=== PATIENT | female | born 1970 | race Caucasian/White ===

== ENCOUNTER 2016-09-09 21:50 | Observation (INO) | payer OTHER ==
[~2016-09-09] VITALS: Ht 149.9 cm; Wt 69.1 kg
[2016-09-09] MEDS ORDERED: NITROGLYCERIN 0.4 MG SL PER TAB CHARGE ONE (21:59)
[2016-09-09] MEDS ORDERED: NITROGLYCERIN 0.4 MG SL PER TAB CHARGE SL STA (21:59)
[2016-09-09 22:22] LABS: BASO % 0.1 %; BASO ABS # 0.01 K/uL (0-0.2); COMPLETE YES; EOS % 0.6 %; HEMATOCRIT 47.2 % (37-47); IG% 0.2 %; LYMPH % 19.2 %; LYMPH ABS # 1.74 K/uL (1.2-3.4); MEAN CELL VOLUME 82.7 fL (80-100); MEAN CORPUSCULAR HEMOGLOBIN 27.7 pg (25-34); MEAN CORPUSCULAR HGB CONC 33.5 g/dl (32-36); MEAN PLATELET VOLUME 11.5 fL (7.4-10.4); MONO % 7.2 %; NEUT % 72.7 %; PLATELET COUNT 231 K/uL (130-400); RED BLOOD COUNT 5.71 M/uL (4.2-5.4); WHITE BLOOD COUNT 9.04 K/uL (4.8-10.8)
--- NOTE | 2016-09-09 22:27 | DIAGNOSTIC IMAGING REPORT ---
CHEST ONE VIEW PORTABLE CLINICAL HISTORY: CHEST PAIN dyspnea COMPARISON STUDY: No previous studies for comparison. FINDINGS: The bones soft tissues and hemidiaphragms are normal. The cardiomediastinal silhouette is normal. The lungs are clear. The pulmonary vasculature is normal. IMPRESSION: Negative chest. Electronically signed by: Guido Gonzalez M.D. 09/09/2016 10:26 PM Dictated Date/Time: 09/09/2016 10:25 PM
[2016-09-09] MEDS ORDERED: NITROGLYCERIN OINT 2% 1GM PACKET EXT ONE (22:30)
[2016-09-09 22:42] LABS: ALKALINE PHOSPHATASE 105 U/L (45-117); ALT/SGPT 22 U/L (12-78); AST/SGOT 16 U/L (15-37); BLOOD UREA NITROGEN 15 mg/dl (7-18); BUN/CREATININE RATIO 14.6 (10-20); CALCIUM 9.1 mg/dl (8.5-10.1); CARBON DIOXIDE 25 mmol/L (21-32); CHLORIDE 107 mmol/L (98-107); CREATININE 0.99 mg/dl (0.60-1.20); GLUCOSE 115 mg/dl (70-99); POTASSIUM 3.7 mmol/L (3.5-5.1); SODIUM 140 mmol/L (136-145)
[2016-09-09] MEDS ORDERED: MoRPHine SULFATE 4 MG/ML 1 ML CARP\\VIAL IV STA (23:10)
[2016-09-09 23:32] LABS: PARTIAL THROMBOPLASTIN RATIO 1.2
[2016-09-09] MEDS ORDERED: ATOR10TA88 PO ×2 (23:39→23:43)
[2016-09-09] MEDS ORDERED: CLOP1TAB15 PO (23:44)
[2016-09-09] MEDS ORDERED: CLON0.5T3 PO (23:45)
[2016-09-09] MEDS ORDERED: METOPROLOL TARTRATE 1 MG/ML VIAL IV SCH (23:49)
[2016-09-09] MEDS ORDERED: MORPHINE SULFATE IR PO (23:50)
[2016-09-09] MEDS ORDERED: POTASSIUM CHLORIDE 10 MEQ TABCR PO SCH (23:51)
[2016-09-09] MEDS ORDERED: HYDR12.55 PO (23:51)
[2016-09-09] MEDS ORDERED: CLONAZEPAM 0.5 MG TAB PO SCH (23:51)
[2016-09-09] MEDS ORDERED: MIRT30TA2 PO (23:51)
[2016-09-09 23:52] LABS: MAGNESIUM 2.5 mg/dl (1.8-2.4); THYROID STIMULATING HORMONE 0.884 uIu/ml (0.300-4.500)
[2016-09-09] MEDS ORDERED: SIMV10TA2 PO (23:52)
[2016-09-10] MEDS ORDERED: ONDANSETRON INJ 2 MG/ML 2 ML VIAL IV PRN
[2016-09-10] MEDS ORDERED: ACETAMINOPHEN 325 MG TAB PO PRN
[2016-09-10] MEDS ORDERED: LACTATED RINGER'S 1000ML 1,000 ML IV ONE
[2016-09-10] MEDS ORDERED: MoRPHine SULFATE 4 MG/ML 1 ML CARP\\VIAL IV PRN
[2016-09-10] MEDS ORDERED: MORPHINE SULFATE IR PO PRN
[2016-09-10] MEDS ORDERED: NITROGLYCERIN 0.4 MG SL PER TAB CHARGE SL PRN
[2016-09-10] MEDS ORDERED: MoRPHine SULFATE IR 15 MG TAB (IMMEDIATE RELEASE) PO SCH (00:28)
[2016-09-10 00:30] VITALS: BP 187/124; PULSE 82; TEMP 36.7; O2SAT 95; Ht 149.9 cm; Wt 69.1 kg
[2016-09-10] MEDS ORDERED: MoRPHine SULFATE IR 15 MG TAB (IMMEDIATE RELEASE) PO PRN (00:30)
[2016-09-10] MEDS ORDERED: MORPHINE SULFATE IR 30 MG PO ONE (00:30)
[2016-09-10] MEDS ORDERED: IV FLUIDS COMPLETED PRN (00:30)
[2016-09-10] MEDS ORDERED: METOPROLOL TARTRATE 50 MG TAB PO ONE (02:36)
[2016-09-10 04:00] VITALS: O2SAT 95
[2016-09-10 04:36] VITALS: BP 149/95; PULSE 81; TEMP 36.8; O2SAT 93
--- NOTE | 2016-09-10 04:46 | EMERGENCY ROOM VISIT NOTE ---
History First contact with patient: 21:59 Chief Complaint: CHEST PAIN Stated Complaint: CHEST PAIN Nursing Triage Summary: patient presents to the emergency department [facility] for complaint of chest pain patient states chest pain began around 2030 tonight while eating dinner describes the chest pain as feeling like "an elephant is sitting on my chest", also c/o shortness of breath patient has had 5 cardiac stents placed in the past in [place], [place] History of Present Illness The patient is a 46 year old female who presents to the Emergency Room with complaints of midsternal chest pain with nausea and diaphoresis that started at 8:30 tonight while watching her family member at a concert. Patient has 5 stents. She has extensive heart disease and continues to smoke. She is in town visiting from [place]. Dr. Sahni is her hot car charger and she states she is overdue for her cardiac catheterization. Patient describes the pain as pressure, ranging in severity 9 out of 10. It is slightly better with the nitroglycerin question that was given by EMS. EMS also gave aspirin. Patient denies dyspnea, fever, chills, cough, congestion, abdominal pain, leg pain or swelling. Review of Systems See HPI for pertinent positives & negatives. A total of 10 systems reviewed and were otherwise negative. Past Medical/Surgical History Medical Problems: (1) Chest pain Coronary artery disease, seizures, hypertension, hyperlipidemia, lymes disease, appendectomy, nephrolithiasis Social History Smoking Status: Heavy Tobacco Smoker Drug Use: none Marital Status: Housing Status: lives with family Current/Historical Medications Scheduled Atorvastatin (Lipitor), Unknown Dose PO DAILY Clonazepam (Klonopin), 0.5 MG PO QID Clopidogrel (Plavix), 75 MG PO DAILY Hydrochlorothiazide (Hydrochlorothiazide), 12.5 MG PO DAILY Mirtazapine Soltab (Remeron Soltab), 60 MG PO HS Simvastatin (Zocor), Unknown Dose PO DAILY Scheduled PRN [Morphine Sulfate Ir], 10 MG PO Q6H PRN for Pain Allergies Coded Allergies: Penicillin V (Verified Allergy, Severe, ANAPHYLAXIS, 09/10/16) Lorazepam (Verified Adverse Reaction, Intermediate, MOOD CHANGES, 09/09/16) Physical Exam Vital Signs Date Time Temp Pulse Resp B/P Pulse Ox O2 Delivery O2 Flow Rate FiO2 09/09/16 23:08 123 28 221/131 94 Nasal Cannula 2.0 09/09/16 22:55 126 20 191/133 96 Nasal Cannula 2.0 09/09/16 22:29 112 16 174/127 97 Nasal Cannula 2.0 09/09/16 22:12 97 Nasal Cannula 2.0 09/09/16 21:59 97 Room Air 09/09/16 21:59 37.2 118 24 163/116 97 Room Air 09/09/16 21:59 97 Room Air 09/09/16 21:56 113 Pain Rating (0-10): 8.0 Physical Exam VITALS: Vitals are noted on the nurse's note and reviewed by myself. Vital signs hypertensive GENERAL: White female with tobacco odor, in no acute distress, nondiaphoretic, well-developed well-nourished. SKIN: The skin was without rashes, erythema, edema, or bruising. There is no tenting of the skin. Capillary reflex less than 2 seconds. HEAD: Normocephalic atraumatic. EARS: External auditory canals clear, tympanic membranes pearly aguilar without erythema or effusion bilaterally. EYES: Pupils equal round and reactive to light and accommodation. Conjunctivae without injection, sclerae without icterus. Extraocular movements intact. NOSE: Patent, turbinates without inflammation or discharge. MOUTH: Mucous membranes moist. Pharynx without erythema or exudate. Uvula midline. Airway patent. Tongue does not deviate. NECK: Supple without nuchal rigidity. No lymphadenopathy. No thyromegaly. Cervical spine is nontender. No JVD. HEART: Regular rate and rhythm without murmurs gallops or rubs. Chest nontender to palpation LUNGS: Clear to auscultation bilaterally without wheezes, rales or rhonchi. No dullness to percussion. No retractions or accessory muscle use. ABDOMEN: Positive bowel sounds x 4. Normal tympanic percussion. Soft, nontender, without masses or organomegaly. Aguirre sign negative. No guarding or rebound tenderness. MUSCULOSKELETAL: No muscle atrophy, erythema, or edema noted. NEURO: Patient was alert and oriented to person place and time. Normal sensation to light and sharp touch. No focal neurological deficits. Medical Decision & Procedures Laboratory Results 09/09/16 22:10 Red Blood Count 5.71, Mean Corpuscular Volume 82.7, Mean Corpuscular Hemoglobin 27.7, Mean Corpuscular Hemoglobin Concent 33.5, Mean Platelet Volume 11.5, Neutrophils (%) (Auto) 72.7, Lymphocytes (%) (Auto) 19.2, Monocytes (%) (Auto) 7.2, Eosinophils (%) (Auto) 0.6, Basophils (%) (Auto) 0.1, Neutrophils # (Auto) 6.57, Lymphocytes # (Auto) 1.74, Monocytes # (Auto) 0.65, Eosinophils # (Auto) 0.05, Basophils # (Auto) 0.01 09/09/16 22:10 Test 09/09/16 22:10 09/09/16 22:12 White Blood Count 9.04 K/uL (4.8-10.8) Red Blood Count 5.71 M/uL (4.2-5.4) Hemoglobin 15.8 g/dL (12.0-16.0) Hematocrit 47.2 % (37-47) Mean Corpuscular Volume 82.7 fL (80-100) Mean Corpuscular Hemoglobin 27.7 pg (25-34) Mean Corpuscular Hemoglobin Concent 33.5 g/dl (32-36) Platelet Count 231 K/uL (130-400) Mean Platelet Volume 11.5 fL (7.4-10.4) Neutrophils (%) (Auto) 72.7 % Lymphocytes (%) (Auto) 19.2 % Monocytes (%) (Auto) 7.2 % Eosinophils (%) (Auto) 0.6 % Basophils (%) (Auto) 0.1 % Neutrophils # (Auto) 6.57 K/uL (1.4-6.5) Lymphocytes # (Auto) 1.74 K/uL (1.2-3.4) Monocytes # (Auto) 0.65 K/uL (0.11-0.59) Eosinophils # (Auto) 0.05 K/uL (0-0.5) Basophils # (Auto) 0.01 K/uL (0-0.2) RDW Standard Deviation 44.9 fL (36.4-46.3) RDW Coefficient of Variation 14.9 % (11.5-14.5) Immature Granulocyte % (Auto) 0.2 % Immature Granulocyte # (Auto) 0.02 K/uL (0.00-0.02) Activated Partial Thromboplast Time 29.9 SECONDS (21.0-31.0) Partial Thromboplastin Ratio 1.2 Anion Gap 8.0 mmol/L (3-11) Est Creatinine Clear Calc Drug Dose 60.5 ml/min Estimated GFR () 79.2 Estimated GFR (Non- 68.3 BUN/Creatinine Ratio 14.6 (10-20) Calcium Level 9.1 mg/dl (8.5-10.1) Magnesium Level 2.5 mg/dl (1.8-2.4) Total Bilirubin 0.3 mg/dl (0.2-1) Direct Bilirubin < 0.1 mg/dl (0-0.2) Aspartate Amino Transf (AST/SGOT) 16 U/L (15-37) Alanine Aminotransferase (ALT/SGPT) 22 U/L (12-78) Alkaline Phosphatase 105 U/L (45-117) Total Protein 7.7 gm/dl (6.4-8.2) Albumin 3.9 gm/dl (3.4-5.0) Lipase 165 U/L (73-393) Thyroid Stimulating Hormone (TSH) 0.884 uIu/ml (0.300-4.500) Bedside Troponin I 0.000 ng/ml (0-0.045) Medications Administered Medications (Trade) Dose Ordered Sig/Jeannette Route Start Time Stop Time Status Last Admin Dose Admin Nitroglycerin (Nitrostat Tab) 0.4 mg STK-MED ONCE .ROUTE 09/09/16 21:59 09/09/16 22:02 DC 09/09/16 22:04 0.4 MG Nitroglycerin (Nitroglycerin 2% Oint) 1 inch NOW ONCE EXT 09/09/16 22:30 09/09/16 23:51 DC 09/09/16 22:29 1 INCH Morphine Sulfate (MoRPHine SULFATE INJ) 4 mg NOW STAT IV 09/09/16 23:10 09/09/16 23:11 DC 09/09/16 23:31 4 MG ED Course Prior records/ancillary studies reviewed. Triage Nursing notes reviewed. Additional history obtained from EMS. The patient's history was concerning for chest pain. Differential diagnosis: Etiologies such as cardiac ischemia, aortic dissection, pulmonary embolism, pneumonia, pneumothorax, musculoskeletal, infections, pericarditis, myocarditis , esophageal rupture, gastrointestinal, as well as others were entertained. Physical examination: As above. ER treatment provided: Nitroglycerin On reassessment the patient felt better. Diagnostic interpretation by me: The electrocardiogram was negative for pathologic change. Normal sinus, normal intervals, no acute ST-T wave changes. Impression normal sinus rhythm interpreted by myself The labs revealed negative troponin Imaging studies: Chest x-ray with no acute consolidation, pneumothorax or free air per my interpretation Consultation: A consultation was placed with the hospitalist, Dr Maddox. The case was discussed and diagnostics were reviewed. The patient was evaluated in the ER for further treatment. Exam and history seem consistent with chest pain with concerns for cardiac ischemia. Patient has extensive heart disease. She continues to smoke. She will be evaluated by medicine for possible admission. First troponin was negative. Normal EKG. By the evaluation outlined above emergent etiologies such as aortic dissection, pulmonary embolism, pneumonia, pneumothorax, infections, pericarditis, myocarditis, gastrointestinal, as well as others were deemed relatively unlikely. The pt informed about the findings as listed above. All questions were answered and pleased with the treatment. Case reviewed with my attending Medical Decision As above Impression Primary Impression: Substernal precordial chest pain Departure Information Dispostion Still a Patient Condition FAIR Referrals No Doctor, Assigned (PCP) Forms HOME CARE DOCUMENTATION FORM, IMPORTANT VISIT INFORMATION Patient Instructions My [facility]
[2016-09-10 06:12] VITALS: BP 171/95; PULSE 74
--- NOTE | 2016-09-10 06:14 | DIAGNOSTIC IMAGING REPORT ---
HEAD CT NONCONTRAST CT DOSE: 537.48 mGy.cm HISTORY: Mental status change mendez TECHNIQUE: Multiaxial CT images of the head were performed without the use of intravenous contrast. Comparison: None. Findings: The paranasal sinuses and mastoid air cells are clear. The calvarium and skull base are intact. The ventricles and sulci are within normal limits. There is no mass, hematoma, midline shift, or acute infarct. Impression: No acute intracranial abnormality. Electronically signed by: Guido Gonzalez M.D. 09/10/2016 6:12 AM Dictated Date/Time: 09/10/2016 6:12 AM
[2016-09-10] MEDS ORDERED: CLONAZEPAM 0.5 MG TAB PO ONE (06:19)
[2016-09-10] MEDS ORDERED: MoRPHine SULFATE 4 MG/ML 1 ML CARP\\VIAL IV ONE (06:30)
[2016-09-10 06:42] LABS: BASO % 0.1 %; BASO ABS # 0.01 K/uL (0-0.2); COMPLETE YES; EOS % 0.3 %; HEMATOCRIT 47.3 % (37-47); IG% 0.2 %; LYMPH % 17.2 %; LYMPH ABS # 2.05 K/uL (1.2-3.4); MEAN CELL VOLUME 84.8 fL (80-100); MEAN CORPUSCULAR HEMOGLOBIN 28.5 pg (25-34); MEAN CORPUSCULAR HGB CONC 33.6 g/dl (32-36); MONO % 8.2 %; PLATELET COUNT 251 K/uL (130-400); RED BLOOD COUNT 5.58 M/uL (4.2-5.4); WHITE BLOOD COUNT 11.95 K/uL (4.8-10.8)
[2016-09-10 06:49] LABS: INR 0.9 (0.9-1.1); PARTIAL THROMBOPLASTIN RATIO 1.2; PROTHROMBIN TIME (PATIENT) 10.1 SECONDS (9.0-12.0)
[2016-09-10 07:19] VITALS: BP 166/97; PULSE 71; TEMP 36.8; O2SAT 96
[2016-09-10 07:26] LABS: BLOOD UREA NITROGEN 14 mg/dl (7-18); BUN/CREATININE RATIO 17.4 (10-20); CALCIUM 9.3 mg/dl (8.5-10.1); CARBON DIOXIDE 25 mmol/L (21-32); CHLORIDE 107 mmol/L (98-107); CHOLESTEROL 154 mg/dl (0-200); CHOLESTEROL/HDL RATIO 2.3; CREATININE 0.82 mg/dl (0.60-1.20); GLUCOSE 105 mg/dl (70-99); HDL CHOLESTEROL 67 mg/dl; LDL CHOLESTEROL CALCULATED 69 mg/dl; POTASSIUM 4.6 mmol/L (3.5-5.1); SODIUM 139 mmol/L (136-145); TRIGLYCERIDES 88 mg/dl (0-150); VERY LOW DENSITY LIPOPROT CALC 18 mg/dl
--- NOTE | 2016-09-10 07:51 | HISTORY & PHYSICAL EXAMINATION ---
DATE OF ADMISSION: 09/09/2016 PRIMARY CARE DOCTOR: Miss Mejia Devika, RABIES INSPECTOR from the [place], [place]. History was obtained from patient. CHIEF COMPLAINT: Chest pain. HISTORY OF PRESENT ILLNESS: Medical history is significant for CAD status post stenting, hypertension, hyperlipidemia, ongoing tobacco abuse, chronic pain secondary to Lyme disease on narcotics, past history of Suboxone treatment, mood/anxiety disorder. Patient is resident of [facility]. She is currently in town to watch family members' music performance. She was having dinner tonight when she had substernal heaviness like an elephant sitting on the chest, going to her shoulder w diaphoresis, similar to heart attack in the past. Relief with nitroglycerin upon arrival to EMS. Compliant with meds. Px also noted generalized headache sx worse with nitropaste placed in the ER. Patient has not taken her nighttime blood pressure meds. The last time she had an anginal attack was in June 2016 . She was seen at the local ER in [place] and subsequently discharged. MEDICAL HISTORY: As above. Her flexographic press helper is Dr. Jeffery Sahni from [place], [place]. Her stents were put in by Dr. Larios (cigar roller) from [place], [place]. SURGERIES: She has had appendectomy, shoulder surgery, tonsillectomy, adenectomy and lieutenant governor procedures. HOME MEDICATIONS: Include; aspirin, Plavix, Lopressor, Lipitor, clonazepam, Remeron, morphine sulfate. She used to be on Suboxone for 5 years as prescribed by her psychiatrist. Recently switched to morphine as needed by her family nurse practitioner. ALLERGIES: TO LORAZEPAM AND PENICILLIN. FAMILY HISTORY: Heart disease. PERSONAL AND SOCIAL HISTORY: Half a pack daily. No chronic intake of alcoholic beverages. Disabled. REVIEW OF SYSTEMS: As per HPI, all other ROS negative. PHYSICAL EXAMINATION: VITAL SIGNS: Blood pressure was noted to be 160/116, later 221/131 and later 171/110, pulse rate 103, RR 38 later 16, temperature 36.7 and sats 95 on room air. GENERAL: Noted to be obese, anxious, tearful, in no respiratory distress. SKIN: Normal color. HEENT: [employer] palpebral conjunctivae. Dry mucosa. NECK: No JVD, supple CHEST: Clear to auscultation. HEART: Tachycardic. ABDOMEN: Some distension, nontender. EXTREMITIES: No edema, no tenderness. NEUROLOGIC: No gross focality. LABORATORIES: Hemoglobin was noted to be 15.8, hematocrit 47.2, white cell count 9, platelets 231. Sodium 140, potassium 3.7 chloride 107, CO2 25, BUN 50, creatinine 1 and glucose was noted to be 115. Troponin was normal. CT of the head; no acute pathology. Chest x-ray; no infiltrates. EKG; sinus tachycardia, rate 115. Q-waves on the septal leads, PRWP ASSESSMENT AND PLAN: 1. Chest pain possible unstable angina versus hypertensive urgency history of coronary artery disease status post stenting 2. hyperlipidemia on statin therapy; 3. ongoing tobacco abuse 4. anxiety disorder on chronic benzo 5. chronic pain secondary to Lyme disease on narcotics. 6. hx seizures as per px, well controlled not on any AED prophylaxis Observation PCU. Facilitate home beta gardenia. Continue anti-platelets, statin for secondary CAD prevention. Follow cardiac markers 2D echo, Cardio consult RE chest pain. Retrieve records from patient's flexographic press helper, PCP from [place] Nicotine patch. DVT prophylaxis, Lovenox subQ. Full code. MTDD
[2016-09-10] MEDS ORDERED: CLONAZEPAM 0.5 MG TAB PO SCH ×2 (09:00→13:00)
[2016-09-10] MEDS ORDERED: CLOPIDOGREL BISULFATE 75 MG TAB PO SCH (09:00)
[2016-09-10] MEDS ORDERED: NICOTINE 14 MG/24 HR TDSY TD SCH (09:00)
[2016-09-10] MEDS ORDERED: ENOXAPARIN 40 MG/0.4 ML SYR SC SCH (09:00)
[2016-09-10] MEDS ORDERED: ATORVASTATIN 20 MG TAB PO SCH (09:00)
[2016-09-10] MEDS ORDERED: ATORVASTATIN 40 MG TAB PO SCH (09:00)
[2016-09-10] MEDS ORDERED: ASPIRIN 81 MG ECTAB PO SCH (09:00)
[2016-09-10] MEDS ORDERED: METOPROLOL TARTRATE 50 MG TAB PO SCH ×2 (09:00→21:00)
--- NOTE | 2016-09-10 09:52 | Progress Note ---
Medicine Progress Note Date & Time of Visit: Sep 10, 2016 at 09:22. Subjective patient seen resting in bedside chair main symptom is hip pain- which is chronic, managed by her PCP no chest pain, dyspnea, dizziness, nausea, palpitations ambulates in the hallways denies other symptoms Objective Last 8 Hrs Date Time Temp Pulse Resp B/P Pulse Ox O2 Delivery O2 Flow Rate FiO2 09/10/16 08:00 Room Air 09/10/16 07:19 36.8 71 16 166/97 96 Room Air 09/10/16 06:12 74 171/95 09/10/16 04:36 36.8 81 18 149/95 93 Room Air 09/10/16 04:00 95 Room Air Physical Exam: General- oriented x 3, not in distress, speaks in sentences with no effort Eyes- EOMI, anicteric Neck- no JVD Lungs- clear breath sounds bilaterally, no rales or wheezes Heart- normal rate, regular rhythm; no murmurs Abdomen- normal bowel sounds, soft, nontender Extremities- no pretibial edema, no calf tenderness Neuro- alert, oriented x 3; no gross focal deficits Skin- warm & dry Laboratory Results: Last 24 Hours Test 09/09/16 22:10 09/09/16 22:12 09/10/16 02:05 09/10/16 06:28 White Blood Count 9.04 K/uL 11.95 K/uL Red Blood Count 5.71 M/uL 5.58 M/uL Hemoglobin 15.8 g/dL 15.9 g/dL Hematocrit 47.2 % 47.3 % Mean Corpuscular Volume 82.7 fL 84.8 fL Mean Corpuscular Hemoglobin 27.7 pg 28.5 pg Mean Corpuscular Hemoglobin Concent 33.5 g/dl 33.6 g/dl Platelet Count 231 K/uL 251 K/uL Mean Platelet Volume 11.5 fL 12.0 fL Neutrophils (%) (Auto) 72.7 % 74.0 % Lymphocytes (%) (Auto) 19.2 % 17.2 % Monocytes (%) (Auto) 7.2 % 8.2 % Eosinophils (%) (Auto) 0.6 % 0.3 % Basophils (%) (Auto) 0.1 % 0.1 % Neutrophils # (Auto) 6.57 K/uL 8.85 K/uL Lymphocytes # (Auto) 1.74 K/uL 2.05 K/uL Monocytes # (Auto) 0.65 K/uL 0.98 K/uL Eosinophils # (Auto) 0.05 K/uL 0.04 K/uL Basophils # (Auto) 0.01 K/uL 0.01 K/uL RDW Standard Deviation 44.9 fL 46.7 fL RDW Coefficient of Variation 14.9 % 15.0 % Immature Granulocyte % (Auto) 0.2 % 0.2 % Immature Granulocyte # (Auto) 0.02 K/uL 0.02 K/uL Activated Partial Thromboplast Time 29.9 SECONDS 31.2 SECONDS Partial Thromboplastin Ratio 1.2 1.2 Sodium Level 140 mmol/L 139 mmol/L Potassium Level 3.7 mmol/L 4.6 mmol/L Chloride Level 107 mmol/L 107 mmol/L Carbon Dioxide Level 25 mmol/L 25 mmol/L Anion Gap 8.0 mmol/L 7.0 mmol/L Blood Urea Nitrogen 15 mg/dl 14 mg/dl Creatinine 0.99 mg/dl 0.82 mg/dl Est Creatinine Clear Calc Drug Dose 60.5 ml/min 72.5 ml/min Estimated GFR () 79.2 99.5 Estimated GFR (Non- 68.3 85.8 BUN/Creatinine Ratio 14.6 17.4 Random Glucose 115 mg/dl 105 mg/dl Calcium Level 9.1 mg/dl 9.3 mg/dl Magnesium Level 2.5 mg/dl Total Bilirubin 0.3 mg/dl Direct Bilirubin < 0.1 mg/dl Aspartate Amino Transf (AST/SGOT) 16 U/L Alanine Aminotransferase (ALT/SGPT) 22 U/L Alkaline Phosphatase 105 U/L Troponin I < 0.015 ng/ml < 0.015 ng/ml < 0.015 ng/ml Total Protein 7.7 gm/dl Albumin 3.9 gm/dl Lipase 165 U/L Thyroid Stimulating Hormone (TSH) 0.884 uIu/ml Bedside Troponin I 0.000 ng/ml Prothrombin Time 10.1 SECONDS Prothromb Time International Ratio 0.9 Triglycerides Level 88 mg/dl Cholesterol Level 154 mg/dl HDL Cholesterol 67 mg/dl LDL Cholesterol, Calculated 69 mg/dl VLDL Cholesterol, Calculated 18 mg/dl Cholesterol/HDL Ratio 2.3 Assessment & Plan CHEST PAIN, POSSIBLE UNSTABLE ANGINA VS. HYPERTENSIVE URGENCY RELATED HISTORY OF CAD S/P STENT - presented with BP as high as 221/131 admits to not having taken her medications yesterday given Metoprolol IV, Nitropaste - troponins x 3 EKG: no signs of acute ischemia per my review - placed on Metoprolol, Aspirin, Plavix, Statin - BP improving - Cardiology consulted, awaiting recommendations HYPERTENSION - inquired with patient if I can verify with her pharmacy her medications so we can order them properly she said she forgot the name of her new pharmacy and would not ellucidate further - improving continue to monitor CHRONIC PAIN, HISTORY OF LYME DISEASE - on Morphine PO and IV PRN ANXIETY - on Clonazepam on my initial evaluation, i discussed with patient regarding her medical condition and the need to have the Shutdown Planner see her for possible further testing patient states she just wants to go back immediately to [place] and continue medical care over there including cardiac cath i repeatedly advised her to stay for further work up and to wait until the Shutdown Planner evaluates her and makes recommendations she said i just want this hip pain to go away, informed that PRN analgesics are ordered for her patient then agreed and was very grateful asked if she has any other questions, and she said no a few minutes later, RN informed me that patient would like to be discharged as soon as possible spoke with patient and her at bedside, RN at bedside patient states she just wants to go home and follow up there discussed that she may be having unstable angina and she needs to be seen by the Shutdown Planner who is already in the building, and will see her soon patient states they cannot afford to wait as the trip back to [place] is 3 hours explained that this is not advised as she has unstable angina and will also deviate from the standard of care if she leaves without being seen by the Shutdown Planner patient and informed that if this is their decision, they will need to sign out against medical advice they both agree to sign out AMA informed patient and to call 911 immediately if with recurrence of symptoms, take medications regularly and follow up with their doctor CHARLY, take rest and no heavy exertion until seen by PCP also advised that their doctor can call here to obtain discharge summary patient expressed gratitude and said everyone here is great, repeatedly Gilbert Peace MD Current Inpatient Medications: Current Inpatient Medications Medications (Trade) Dose Ordered Sig/Jeannette Route Start Time Stop Time Status Last Admin Dose Admin Metoprolol Tartrate (Lopressor Tab) 50 mg BID PO 09/10/16 09:00 09/10/16 19:59 09/10/16 08:19 50 MG Enoxaparin Sodium (Lovenox Inj) 40 mg QAM SC 09/10/16 09:00 10/10/16 08:59 09/10/16 08:22 40 MG Acetaminophen (Tylenol Tab) 650 mg Q4H PRN PO 09/10/16 00:00 10/10/16 00:00 Nitroglycerin (Nitrostat Tab) 0.4 mg UD PRN SL 09/10/16 00:00 10/10/16 00:00 09/10/16 04:00 0.4 MG Morphine Sulfate (MoRPHine SULFATE INJ) 4 mg Q4H PRN IV 09/10/16 00:00 09/24/16 00:00 09/10/16 05:52 4 MG Ondansetron HCl (Zofran Inj) 4 mg Q6H PRN IV 09/10/16 00:00 10/10/16 00:00 Nicotine (Nicoderm Cq 14MG Patch) 1 patch QAM TD 09/10/16 09:00 10/10/16 08:59 Miscellaneous (Remove Nicoderm Patch) 1 ea HS N/A 09/10/16 21:00 10/10/16 20:59 Aspirin (Ecotrin Tab) 81 mg QAM PO 09/10/16 09:00 10/10/16 08:59 09/10/16 08:20 81 MG Clopidogrel Bisulfate 75 mg 75 mg DAILY PO 09/10/16 09:00 10/10/16 08:59 09/10/16 08:20 75 MG Lactated Ringer's (Lr 1000ml) 1,000 ml @ 60 mls/hr [id number] ONCE IV 09/10/16 00:00 09/10/16 16:39 09/10/16 01:04 60 MLS/HR Miscellaneous (Iv Fluids Completed) 1 ea PRN PRN N/A 09/10/16 00:30 09/10/17 00:29 Morphine Sulfate (MoRPHine SULFATE IR TAB) 15 mg QID PRN PO 09/10/16 00:30 09/24/16 00:29 09/10/16 09:06 15 MG Metoprolol Tartrate (Lopressor Tab) 50 mg BID PO 09/10/16 21:00 10/10/16 20:59 Mirtazapine (Remeron Solutab) 60 mg HS PO 09/10/16 21:00 10/10/16 20:59 Atorvastatin Calcium (Lipitor Tab) 80 mg DAILY PO 09/10/16 09:00 10/10/16 08:59 09/10/16 08:19 80 MG Clonazepam (Klonopin Tab) 0.5 mg QID PO 09/10/16 13:00 10/10/16 12:59
--- NOTE | 2016-09-10 09:59 | Discharge Instructions ---
Discharge Instructions Date of Service Sep 10, 2016. Admission Reason for Admission: Chest Pain Discharge Discharge Diagnosis / Problem: CHEST PAIN, POSSIBLE UNSTABLE ANGINA Discharge Goals Goal(s): Diagnostic testing, Therapeutic intervention Activity Recommendations Activity Limitations: as noted below (NO HEAVY EXERTION UNTIL RE-EVALUATED BY PRIMARY CARE PHYSICIAN OR ROCK SINGER) . Instructions / Follow-Up Instructions / Follow-Up TAKE MEDICATIONS REGULARLY. CALL 911 IF WITH RECURRENCE OF SYMPTOMS. FOLLOW UP WITH PRIMARY CARE PHYSICIAN OR ROCK SINGER SOON POSSIBLE UPON RETURN TO [place]. Current Hospital Diet Patient's current hospital diet: AHA Diet (Heart Healthy) Discharge Diet Recommended Diet: AHA Diet (Heart Healthy) Pending Studies Studies pending at discharge: yes List of pending studies: CARDIOLOGY FOLLOW UP Laboratory Results Lipid Panel Test 09/10/16 06:28 Range/Units Triglycerides Level 88 0-150 mg/dl Cholesterol Level 154 0-200 mg/dl HDL Cholesterol 67 mg/dl Cholesterol/HDL Ratio 2.3 LDL Cholesterol, Calculated 69 mg/dl Medical Emergencies . Who to Call and When: Medical Emergencies: If at any time you feel your situation is an emergency, please call 911 immediately. . Non-Emergent Contact Non-Emergency issues call your: Primary Care Provider, Insurance Claims Assistant . . "Provider Documentation" section prepared by Gilbert Peace. VTE Core Measure Inpt VTE Proph given/why not?: Enoxaparin (Lovenox)SQ
--- NOTE | 2016-09-10 10:07 | Discharge Summary ---
Discharge Summary Date of Service Sep 10, 2016. Discharge Summary Admission Date: Sep 09, 2016 at 23:17 Discharge Date: Sep 10, 2016 Discharge Disposition: Home (LEFT AGAINST MEDICAL ADVICE) Principal Diagnosis: CHEST PAIN, POSSIBLE UNSTABLE ANGINA VS. HYPERTENSIVE URGENCY RELATED HISTORY OF CAD S/P STENT Secondary Diagnoses/Problems: PLEASE REFER TO HOSPITAL COURSE BELOW. Consultations: MINE MANAGER Pending Studies/Follow-Up: CARDIOLOGY FOLLOW UP Medication Reconciliation Continued Medications: Atorvastatin (Lipitor) 10 Mg Tab Unknown Dose PO DAILY, TAB Clonazepam (Klonopin) 0.5 Mg Tab 0.5 MG PO QID, TAB Clopidogrel (Plavix) 75 Mg Tab 75 MG PO DAILY, TAB Hydrochlorothiazide (Hydrochlorothiazide) 12.5 Mg Tab 12.5 MG PO DAILY, TAB Mirtazapine Soltab (Remeron Soltab) 30 Mg Soltab 60 MG PO HS, TAB [Morphine Sulfate Ir] () 10 MG PO Q6H PRN for Pain Discontinued Medications: Simvastatin (Zocor) 10 Mg Tab Unknown Dose PO DAILY, TAB Admission Information HPI (per Admitting provider): CHIEF COMPLAINT: Chest pain. HISTORY OF PRESENT ILLNESS: Medical history is significant for CAD status post stenting, hypertension, hyperlipidemia, ongoing tobacco abuse, chronic pain secondary to Lyme disease past history of Suboxone treatment with mood anxiety disorder. The patient in town to watch family members' music performance. She was having dinner tonight when she had substernal discomfort, heaviness like an elephant sitting on the chest, going to her shoulder, some ache similar to heart attack in the past. Relief with nitroglycerin upon arrival to EMS. Compliant with meds. The patient has not taken her nighttime blood pressure meds. The last time she had this episode was in June 2016 and was seen at the local ER in [place] and subsequently discharged. Headache worse with nitro paste placed in the ER. MEDICAL HISTORY: As above. 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 Jeffery Sahni from [place], [place]. Her stents were put in by Dr. 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 SURGERIES: She has had appendectomy, shoulder surgery, tonsillectomy, adenectomy HOME MEDICATIONS: Include; aspirin, Plavix, Lopressor, Lipitor, clonazepam, Remeron, morphine sulfate. She used to be on Suboxone for 5 years under the guidance of her psychiatrist, recently switched to morphine as needed being prescribed by her family nurse practitioner. ALLERGIES: TO LORAZEPAM AND PENICILLIN. FAMILY HISTORY: Heart disease. PERSONAL AND SOCIAL HISTORY: Half a pack daily. No chronic intake of alcoholic beverages. Disabled. REVIEW OF SYSTEMS: As per HPI, others negative. Physical Exam (per Admitting): PHYSICAL EXAMINATION: VITAL SIGNS: Blood pressure was noted to be 160-116, later 221-131 pulse rate 103, RR 38 later 16, temperature 36.7 and sats 95 on room air. GENERAL: Noted to be obese, anxious, teary eyed, in no respiratory distress. SKIN: Normal color. HEENT: [place] palpable conjunctivae. Dry mucosa. NECK: No JVD CHEST: Clear to auscultation. HEART: Tachycardic. ABDOMEN: Some distension, nontender. EXTREMITIES: No edema, no tenderness. NEUROLOGIC: No gross focality. Hospital Course CHEST PAIN, POSSIBLE UNSTABLE ANGINA VS. HYPERTENSIVE URGENCY RELATED HISTORY OF CAD S/P STENT - presented with BP as high as 221/131 admits to not having taken her medications yesterday given Metoprolol IV, Nitropaste - troponins x 3 EKG: no signs of acute ischemia per my review - placed on Metoprolol, Aspirin, Plavix, Statin - BP improving - Cardiology consulted, awaiting recommendations - patient decided to sign out against AMA despite extensive discussion advised to take medications regularly, follow up with PCP or Dehydrogenation Converter Operator CHARLY upon return to [place] may need urgent Cardiac Cath HYPERTENSION - placed on Metoprolol PO - needs close outpatient monitoring CHRONIC PAIN, HISTORY OF LYME DISEASE - on Morphine PO and IV PRN ANXIETY - on Clonazepam Total time spent on discharge = 50 minutes This includes examination of the patient, discharge planning, medication reconciliation, and communication with other providers. Discharge Instructions Discharge Instructions Date of Service Sep 10, 2016. Admission Reason for Admission: Chest Pain Discharge Discharge Diagnosis / Problem: CHEST PAIN, POSSIBLE UNSTABLE ANGINA Discharge Goals Goal(s): Diagnostic testing, Therapeutic intervention Activity Recommendations Activity Limitations: as noted below (NO HEAVY EXERTION UNTIL RE-EVALUATED BY PRIMARY CARE PHYSICIAN OR MINE MANAGER) . Instructions / Follow-Up Instructions / Follow-Up TAKE MEDICATIONS REGULARLY. CALL 911 IF WITH RECURRENCE OF SYMPTOMS. FOLLOW UP WITH PRIMARY CARE PHYSICIAN OR MINE MANAGER SOON POSSIBLE UPON RETURN TO [place]. Current Hospital Diet Patient's current hospital diet: AHA Diet (Heart Healthy) Discharge Diet Recommended Diet: AHA Diet (Heart Healthy) Pending Studies Studies pending at discharge: yes List of pending studies: CARDIOLOGY FOLLOW UP Laboratory Results Lipid Panel Test 09/10/16 06:28 Range/Units Triglycerides Level 88 0-150 mg/dl Cholesterol Level 154 0-200 mg/dl HDL Cholesterol 67 mg/dl Cholesterol/HDL Ratio 2.3 LDL Cholesterol, Calculated 69 mg/dl Medical Emergencies . Who to Call and When: Medical Emergencies: If at any time you feel your situation is an emergency, please call 911 immediately. . Non-Emergent Contact Non-Emergency issues call your: Primary Care Provider, Dehydrogenation Converter Operator . . "Provider Documentation" section prepared by Gilbert Peace. VTE Core Measure Inpt VTE Proph given/why not?: Enoxaparin (Lovenox)SQ
[2016-09-10] MEDS ORDERED: MIRTAZAPINE SOLTAB 15 MG PO SCH ×2 (21:00)
== END 2016-09-10 09:20 | disposition left against medical advice (07) ==
LOC: ENRESERVDT → ENRESERVTM → C.EDC 21:52 → C.MED 23:17
PROVIDERS: ADMIT Internal Medicine; ATTEND Internal Medicine
DX: R07.9 Chest pain, unspecified (principal); I25.10 Atherosclerotic heart disease of native coronary artery without angina pectoris; Z95.818 Presence of other cardiac implants and grafts; I10 Essential (primary) hypertension; G89.29 Other chronic pain; F41.9 Anxiety disorder, unspecified; F17.200 Nicotine dependence, unspecified, uncomplicated; E78.5 Hyperlipidemia, unspecified; Z82.49 Family history of ischemic heart disease and other diseases of the circulatory system